=== PATIENT | female | born 1985 | race Caucasian/White ===

== ENCOUNTER 2023-09-15 12:22 | Emergency (ER) | payer OTHER, SELFPAY ==
--- NOTE | ~2023-09-15 | CT_ITS ---
EXAMINATION: CT ABDOMEN AND PELVIS WITH CONTRAST CLINICAL INFORMATION: Elevated lipase. Nausea and vomiting. COMPARISON: None available. TECHNIQUE: Multidetector volumetric images were obtained from the superior aspect of the liver through the pubic symphysis following administration 85 mL of Omnipaque 350 intravenous contrast. Sagittal and coronal reformatted images were obtained on the technologist's workstation. Oral contrast: No This CT examination was performed using dose optimization techniques as appropriate, variously including the following: *Automated exposure control *Adjustment of mA and/or kV according to patient size (this includes techniques or standardized protocols for targeted exams where dose is matched to indication/reason for exam; i.e. extremities or head) *Use of iterative reconstruction technique DLP: 691 mGy-cm FINDINGS: LUNG BASES: The visualized lung bases are unremarkable. LIVER, GALLBLADDER, AND BILIARY TREE: The liver is normal in size, shape, and attenuation. No focal hepatic lesion or biliary ductal dilatation is present. The gallbladder is unremarkable with no evidence of radiopaque gallstones, gallbladder wall thickening, or obvious pericholecystic inflammatory changes. PANCREAS: Unremarkable. SPLEEN: Unremarkable. ADRENAL GLANDS: Unremarkable. KIDNEYS AND URETERS: The kidneys are normal in size, shape, and attenuation. No hydronephrosis, hydroureter, or calculi seen. No perinephric stranding. BLADDER: Unremarkable. GASTROINTESTINAL TRACT: No small bowel obstruction. ABDOMINAL WALL: Fat-containing umbilical hernia. LYMPH NODES: No bulky lymphadenopathy. VASCULAR: Normal caliber abdominal aorta. Retroaortic left renal vein. PELVIC VISCERA: Unremarkable. OSSEOUS STRUCTURES: No destructive bone lesions. CT/CT abdomen pelvis w IV con IMPRESSION: No acute abnormality in the abdomen or pelvis.
[2023-09-15 12:30] VITALS: BP 104/71; BP 105/70; PULSE 74; PULSE 88; RESP 18; TEMP 36.8; O2SAT 95; O2SAT 97; BMI 35.2
--- NOTE | 2023-09-15 12:58 | ED.GENADULT ---
HPI - General Adult General Chief complaint: Nausea/Vomiting/Diarrhea Stated complaint: VOMIING,WEAK THIS AM PER EMS Time Seen by Provider: 09/15/23 12:53 History of Present Illness HPI narrative: 38 y/o F patient; PMH ADHD, active nicotine use; presents from home with reported nausea and NBNB vomiting since this morning. Associated with decreased PO intake. Denies known sick contacts. Denies: abdominal pain, cough/congestion, difficulty breathing, chest pain, diarrhea. Last bowel movement was in the ED as soft in consistency. Has hx tubal ligation. Related Data Previous Rx's Medication Instructions Recorded ondansetron 4 mg disintegrating 4 mg PO Q8H PRN nausea and 09/15/23 tablet vomiting 7 days #21 tabs Allergies Allergy/AdvReac Type Severity Reaction Status Date / Time estradiol Allergy Unknown Verified 09/15/23 12:41 Review of Systems Review of Systems: Yes all other systems are reviewed and are negative PMFSH Past Medical History Source: unable to obtain Social History Social History Advance Directives: No Advance Directives Information Provided: No Physical Exam ED Vital Signs: Vital Signs - 24 hr 09/15/23 12:30 09/15/23 14:32 09/15/23 16:00 Temperature 98.3 F 98.5 F Pulse Rate 88 81 84 Respiratory Rate 18 14 15 Blood Pressure 105/70 114/63 106/70 Pulse Oximetry 97 97 96 Oxygen Delivery Method Room Air Room Air Room Air BMI result Body Mass Index 35.2 Patient is afebrile and hemodynamically stable Const General: cooperative and no acute distress HENPA Head: Yes atraumatic Eyes General: appearance normal, both eyes and all related structures Pupils: Equal, round and reactive pupils present EOM: EOMs intact bilaterally Neck Neck: Yes full ROM, Yes supple and No tender Chest Chest palpation & inspection: normal inspection of the chest and normal palpation of entire chest wall Resp Effort & Inspection: normal respiratory effort, able to speak in complete sentences and no respiratory distress Auscultation: clear to auscultation bilaterally Cardio Rate: regular rate Rhythm: regular rhythm Peripheral pulses: Peripheral pulses 2+ throughout GI Inspection: Yes normal to inspection and No distended Palpation (GI): Soft to palpation, not firm and nontender Auscultation: normal bowel sounds General: Yes no CVA tenderness Back/Spine/Pelvis Back: no CVA tenderness Neuro Cranial nerves: Yes Equal, round and reactive pupils present Course Course Course Narrative: Patient is afebrile and hemodynamically stable. Ordered abdominal labs, COVID/Flu/RSV, EKG. Provided 1L IVF and Zofran 4mg IV. Patient with active nausea and dry heaving during examination. Reevaluation(s) Reevaluation #1: EKG: NSR 88BPM without ischemic changes Laboratory studies reviewed. No significant leukocytosis. Bicarb 22 - consistent with mild dehydration. Received the 1L IVF. Lipase 94. Patient still reporting nausea and dry heaving, given mildly elevated lipase ordered for CT Abdomen/Pelvis. Time: 14:30 Reevaluation #2: CT Abdomen/Pelvis unremarkable. Patient PO trialed tu de without difficulty. Suspect viral gastroenteritis. Plan: Discharge to home with PCP follow up Return precautions given Time: 17:50 Medications Administered Discontinued Medications Generic Name Dose Route Start Last Admin Trade Name Freq PRN Reason Stop Dose Admin Sodium Chloride 1,000 mls @ 999 mls/hr 09/15/23 13:00 09/15/23 14:04 Ns IV 09/15/23 14:00 999 mls/hr .Q1H1M RAMSEY Administration Iohexol 85 ml 09/15/23 16:02 09/15/23 16:02 Iohexol 350 Mg/Ml 75 Ml Infus..Btl IV 09/15/23 16:03 85 ml ONCE ONE Administration Ondansetron HCl 4 mg 09/15/23 13:56 09/15/23 14:04 Ondansetron Hcl 4 Mg/2 Ml Vial IVPUSH 09/15/23 13:57 4 mg ONCE ONE Administration Medical Decision Making Lab Data [facility] Lab Attestation statement: I reviewed the patient's lab results. 09/15/23 14:42 09/15/23 14:42 Labs: Lab Results 09/15/23 Range/Units 14:42 WBC 6.3 (4.8-10.8) X10*3/uL RBC 4.24 (4.20-5.50) X10*6/uL Hgb 13.0 (12.0-16.0) g/dl Hct 39.2 (37.0-47.0) % MCV 92.5 (80.0-98.0) fL MCH 30.7 (27.0-33.0) pg MCHC 33.2 (31.0-35.0) g/dl RDW 12.9 (11.0-16.0) % Plt Count 141 L (160-400) X10*3/uL MPV 11.0 (9.4-12.3) fL Immature Gran % (Auto) 0.5 H (0.0-0.4) % Neut % (Auto) 88.6 H (45-73) % Lymph % (Auto) 7.0 L (20-40) % Brewster % (Auto) 3.2 (2-11) % Eos % (Auto) 0.5 (0-4) % Baso % (Auto) 0.2 (0-2) % Lymph # (Auto) 0.4 L (1.2-4.9) X10*3/uL Brewster # (Auto) 0.2 (0.1-1.2) X10*3/uL Eos # (Auto) 0.0 (0.0-0.4) X10*3/uL Baso # (Auto) 0.0 (0.0-0.2) X10*3/uL Abs Immat Gran (auto) 0.03 (0.00-0.03) X10*3/uL Absolute Neuts (auto) 5.6 (2.0-8.3) x10*3/uL Absolute Nucleated RBC 0.000 (0.0-0.012) X10*3/uL Nucleated RBC % (auto) 0.0 (0.0-0.2) /100WBC Sodium 141 (135-145) mmol/L Potassium 3.7 (3.3-5.1) mmol/L Chloride 112 H (96-108) mmol/L Carbon Dioxide 22 (22-29) mmol/L Anion Gap 11 L (12-20) BUN 21 H (9-16) mg/dL Creatinine 0.59 (0.5-1.4) mg/dL Estim Creat Clear Calc 124.7 Estimated GFR > 60 Random Glucose 107 (60-115) mg/dL Calcium 7.7 L (8.4-10.2) mg/dL Total Bilirubin 0.5 (0.0-1.0) mg/dL Direct Bilirubin 0.2 (0.0-0.5) mg/dL AST 14 (5-31) U/L ALT 14 (0-31) U/L Alkaline Phosphatase 51 (39-117) U/L Total Protein 5.6 L (6.5-8.0) g/dL Albumin 3.5 (3.5-5.0) g/dL Lipase 94 H (8-78) U/L Beta HCG, Quant < 2 mIU/mL Influenza Type A (PCR) NEGATIVE (Negative) Influenza Type B (PCR) NEGATIVE (Negative) RSV RNA Qual (PCR) NEGATIVE (Negative) SARS-CoV-2 RNA (RT-PCR) NEGATIVE (Negative) Radiology Impression Discussion of test interpretation with radiology: I have reviewed the radiologist's reading. Radiologist Impression: EXAMINATION: CT ABDOMEN AND PELVIS WITH CONTRAST CLINICAL INFORMATION: Elevated lipase. Nausea and vomiting. COMPARISON: None available. TECHNIQUE: Multidetector volumetric images were obtained from the superior aspect of the liver through the pubic symphysis following administration 85 mL of Omnipaque 350 intravenous contrast. Sagittal and coronal reformatted images were obtained on the technologist's workstation. Oral contrast: No This CT examination was performed using dose optimization techniques as appropriate, variously including the following: *Automated exposure control *Adjustment of mA and/or kV according to patient size (this includes techniques or standardized protocols for targeted exams where dose is matched to indication/reason for exam; i.e. extremities or head) *Use of iterative reconstruction technique DLP: 691 mGy-cm FINDINGS: LUNG BASES: The visualized lung bases are unremarkable. LIVER, GALLBLADDER, AND BILIARY TREE: The liver is normal in size, shape, and attenuation. No focal hepatic lesion or biliary ductal dilatation is present. The gallbladder is unremarkable with no evidence of radiopaque gallstones, gallbladder wall thickening, or obvious pericholecystic inflammatory changes. PANCREAS: Unremarkable. SPLEEN: Unremarkable. ADRENAL GLANDS: Unremarkable. KIDNEYS AND URETERS: The kidneys are normal in size, shape, and attenuation. No hydronephrosis, hydroureter, or calculi seen. No perinephric stranding. BLADDER: Unremarkable. GASTROINTESTINAL TRACT: No small bowel obstruction. ABDOMINAL WALL: Fat-containing umbilical hernia. LYMPH NODES: No bulky lymphadenopathy. VASCULAR: Normal caliber abdominal aorta. Retroaortic left renal vein. PELVIC VISCERA: Unremarkable. OSSEOUS STRUCTURES: No destructive bone lesions. CT/CT abdomen pelvis w IV con IMPRESSION: No acute abnormality in the abdomen or pelvis Discharge Plan Discharge Clinical Impression: Gastroenteritis Patient Disposition: Home, Self-Care Instructions: Gastroenteritis (DC) Additional Instructions: As we discussed, you were seen today for nausea and vomiting. Your lab work and CT Abdomen/Pelvis were reassuring. Please follow up with your PCP within 1 week to discuss your recent ED visit. Return to the ED for worsening abdominal pain or nausea/vomiting to the point where you cannot drink water. A prescription for a nausea medication was sent to your pharmacy. Prescriptions: New ondansetron 4 mg tablet,disintegrating 4 mg PO Q8H PRN (Reason: nausea and vomiting) 7 Days Qty: 21 0RF
--- NOTE | 2023-09-15 12:59 | ECG_ITS ---
Test Reason : NAUSEA/VOMITING Blood Pressure : / mmHG Vent. Rate : 088 BPM Atrial Rate : 088 BPM P-R Int : 142 ms QRS Dur : 086 ms QT Int : 384 ms P-R-T Axes : 043 043 037 degrees QTc Int : 464 ms Normal sinus rhythm Normal ECG No previous ECGs available Referred By: Bernadine Roberts Electronically Signed By:GELY QURESHI MD
[2023-09-15] MEDS: 0.9 % Sodium Chloride 1,000 ML 999 ML IV (14:04)
[2023-09-15] MEDS: ondansetron HCL 4 MG/2 ML VIAL IVPUSH (14:04)
[2023-09-15 14:32] VITALS: BP 114/63; PULSE 81; RESP 14; O2SAT 97
[2023-09-15 14:47] LABS: MANUAL DIFF FLAG NO
[2023-09-15 14:49] LABS: Basophils Percent Auto 0.2 % (0-2); Eosinophils Percent Auto 0.5 % (0-4); Hematocrit 39.2 % (37.0-47.0); Imm Gran Abs Auto 0.03 X10*3/uL (0.00-0.03); Imm Gran Pct Auto 0.5 % (0.0-0.4); Lymphocytes Absolute Auto 0.4 X10*3/uL (1.2-4.9); Mean Corpuscular HGB Conc 33.2 g/dl (31.0-35.0); Mean Corpuscular Hemoglobin 30.7 pg (27.0-33.0); Mean Corpuscular Volume 92.5 fL (80.0-98.0); Monocytes Absolute Auto 0.2 X10*3/uL (0.1-1.2); Monocytes Percent Auto 3.2 % (2-11); Neutrophils Absolute Auto 5.6 x10*3/uL (2.0-8.3); Neutrophils Percent Auto 88.6 % (45-73); Platelet Count 141 X10*3/uL (160-400); Red Blood Count 4.24 X10*6/uL (4.20-5.50); Red Cell Distribution Width 12.9 % (11.0-16.0); White Blood Count 6.3 X10*3/uL (4.8-10.8)
[2023-09-15 15:13] LABS: Alanine Aminotransferase 14 U/L (0-31); Albumin Level 3.5 g/dL (3.5-5.0); Alkaline Phosphatase 51 U/L (39-117); Anion Gap 11 (12-20); Aspartate Amino Transferase 14 U/L (5-31); Bilirubin Direct 0.2 mg/dL (0.0-0.5); Bilirubin Total 0.5 mg/dL (0.0-1.0); Blood Urea Nitrogen 21 mg/dL (9-16); Calcium 7.7 mg/dL (8.4-10.2); Carbon Dioxide 22 mmol/L (22-29); Chloride 112 mmol/L (96-108); Creatinine Clr Calc Pharmacy 124.7; Estimated Glomerular Filt Rate > 60; Glucose Random 107 mg/dL (60-115); Lipase 94 U/L (8-78); Potassium 3.7 mmol/L (3.3-5.1); Sodium 141 mmol/L (135-145); Total Protein 5.6 g/dL (6.5-8.0)
[2023-09-15 15:15] LABS: HCG Quantitative < 2 mIU/mL
[2023-09-15 15:36] LABS: Influenza A PCR NEGATIVE (Negative); Influenza B PCR NEGATIVE (Negative); Resp Syncy Virus RNA Qual PCR NEGATIVE (Negative); SARS COV2 PCR INHOUSE NEGATIVE (Negative)
[2023-09-15 16:00] VITALS: BP 106/70; PULSE 84; RESP 15; TEMP 36.9; O2SAT 96
[2023-09-15] MEDS: iohexoL 350 MG/ML 75 ML INFUS..BTL 85 ML IV (16:02)
== END 2023-09-15 18:11 | disposition home or self-care (01) ==
PROVIDERS: Emergency Provider Emergency Medicine
DX: R11.2 Nausea with vomiting, unspecified (principal); K52.9 Noninfective gastroenteritis and colitis, unspecified; Z20.822 Contact with and (suspected) exposure to COVID-19; Z20.828 Contact with and (suspected) exposure to other viral communicable diseases; Z79.899 Other long term (current) drug therapy
CPT/HCPCS: 0241U; 74177; 80048; 80076; 83690; 84702; 85025; 93005; 96374; 99284; J2405; Q9967

== ENCOUNTER → 2023-09-15 12:59 | Outpatient (BNV) | payer OTHER, SELFPAY | PROVIDERS: Emergency Provider Emergency Medicine; Visit Provider Internal Medicine Cardiovascular Disease | DX: R11.10 Vomiting, unspecified (principal) | CPT/HCPCS: 93010 ==